=== PATIENT | male | born 1945 | race Two or more races ===

== ENCOUNTER 2024-05-19 10:53 | Inpatient (IN) | payer OTHER ==
[~2024-05-19] VITALS: Ht 160 cm; Wt 52.3 kg
[2024-05-19 11:55] LABS: COVID AG,FIA SOURCE NASAL SWAB
[2024-05-19 12:10] LABS: ANION GAP 7 mmol/L (8-16); CALCIUM, TOTAL 8.2 mg/dL (8.8-10.5); CARBON DIOXIDE 26 mmol/L (22-29); CHLORIDE 105 mmol/L (98-107); CREATININE 0.73 mg/dL (0.60-1.30); GLOMERULAR FILTR. RATE CALC > 60 mL/min (>60); GLUCOSE,RANDOM 90 mg/dL (70-110); POTASSIUM 3.9 mmol/L (3.5-5.1); SODIUM SERUM 138 mmol/L (136-145); UREA NITROGEN, BLOOD 17 mg/dL (7-18)
[2024-05-19] MEDS: ACETAMINOPHEN 325 MG TABLET PO ONE (12:10)
[2024-05-19 12:17] LABS: BASOPHILS % (AUTO) 0.5 % (0.0-2.0); EOSINOPHILS % (AUTO) 5.1 % (1.0-6.0); HEMATOCRIT 37.8 % (41-53); HEMOGLOBIN 12.6 g/dL (13.5-17.5); LYMPHOCYTES # (AUTO) 0.9 K/uL (1.0-4.8); LYMPHOCYTES % (AUTO) 19.8 % (22.0-44.0); MEAN CORPUSCULAR HEMOGLOBIN 31.6 pg (26.0-34.0); MEAN CORPUSCULAR HGB CONC 33.3 G/dL (31.0-37.0); MEAN CORPUSCULAR VOLUME 95 fL (80-100); MONOCYTES # (AUTO) 0.3 K/uL (0.1-1.0); MONOCYTES % (AUTO) 6.7 % (2.0-9.0); NEUTROPHILS % (AUTO) 67.9 % (40.0-70.0); PLATELET COUNT (AUTO) 158 K/uL (150-450); RED BLOOD CELL COUNT(AUTO) 3.98 MIL/uL (4.50-5.90); RED CELL DISTRIBUTION WIDTH 14.3 % (11.5-14.5); WHITE BLOOD COUNT (AUTO) 4.4 K/uL (4.5-11.0)
[2024-05-19 12:24] LABS: ALANINE AMINOTRANSFERASE 23 U/L (12-78); ALBUMIN 3.1 g/dL (3.4-5.0); ALKALINE PHOSPHATASE 72 U/L (46-116); ASPARTATE AMINOTRANSFERASE 32 U/L (15-37); BILIRUBIN,TOTAL 0.4 mg/dL (0.1-1.0); CHOL/HDL RATIO 3.3 (4.2-7.3); CHOLESTEROL 151 mg/dL (131-200); HDL CHOLESTEROL 46 mg/dL (40-60); LDL CHOL (CALC.) 92 mg/dL (0-130); THYROID STIMULATING HORMONE 5.86 uIU/mL (0.36-3.74); TOTAL PROTEIN, SERUM 6.8 g/dL (6.4-8.2); TRIGLYCERIDES 63 mg/dL (15-150)
[2024-05-19 13:11] LABS: INFLUENZA TYPE A NEGATIVE FOR TYPE A (NEGATIVE); INFLUENZA TYPE B POSITIVE FOR TYPE B (NEGATIVE)
[2024-05-19] MEDS: AZITHROMYCIN 500 MG/NS 250 ML IV ONE (13:12)
[2024-05-19] MEDS: CefTRIAXone 1 GM/DEXTROSE 50 ML IV ONE (13:12)
[2024-05-19 13:14] LABS: SARS-COV2 (COVID) ANTIGEN,FIA Negative (Negative)
[2024-05-19] MEDS ORDERED: ACETAMINOPHEN 325 MG TABLET PO PRN (15:00)
[2024-05-19] MEDS ORDERED: ONDANSETRON HCL 4 MG/2 ML VIAL IVP PRN (15:00)
[2024-05-19 15:47] LABS: MTB PCR w/Rif. Resistance-SPUT NOT DETECTED (Not Detectd)
[2024-05-19] MEDS: OSELTAMIVIR PHOSPHATE 75 MG CAPSULE PO SCH (17:04)
[2024-05-19] MEDS: HEPARIN SODIUM,PORCINE 5,000 UNITS/ML VIAL SQ SCH (17:04)
[2024-05-19 17:51] VITALS: BP 112/69; PULSE 54; RESP 18; TEMP 98.2; O2SAT 98
[2024-05-19] MEDS ORDERED: PNEUMOCOCCAL VACCINE POLYVALENT 0.5 ML SYRINGE [PPSV23] IM. ONE (18:15)
[2024-05-19 20:00] VITALS: BP 98/61; PULSE 61; RESP 16; TEMP 98; O2SAT 97
[2024-05-19] MEDS ORDERED: SODIUM CHLORIDE 3% 15 ML NEB SOLUTION NEB ONE (20:36)
[2024-05-19] MEDS: DOCUSATE SODIUM 100 MG CAPSULE PO SCH (21:27)
[2024-05-19 22:49] VITALS: BP 96/57; PULSE 57; RESP 18; TEMP 98; O2SAT 95
[2024-05-20] VITALS (9 sets, daily range): BP systolic 101–137; BP diastolic 61–91; PULSE 56–77; RESP 16–19; TEMP 97.7–98.2; O2SAT 95–99
[2024-05-20 01:07] LABS: HEPATITIS A ANTIBODY IGM Negative (Negative); HEPATITIS B CORE IGM Negative (Negative); HEPATITIS C AB (EIA) Non Reactive (Non Reactive); HIV 1-2 SCREEN 4TH GEN W/RFLX Non Reactive (Non Reactive)
[2024-05-20 07:24] LABS: BASOPHILS % (AUTO) 0.8 % (0.0-2.0); EOSINOPHILS % (AUTO) 6.5 % (1.0-6.0); HEMOGLOBIN 12.3 g/dL (13.5-17.5); LYMPHOCYTES # (AUTO) 1.1 K/uL (1.0-4.8); LYMPHOCYTES % (AUTO) 23.4 % (22.0-44.0); MEAN CORPUSCULAR HEMOGLOBIN 32.3 pg (26.0-34.0); MEAN CORPUSCULAR HGB CONC 34.3 G/dL (31.0-37.0); MEAN CORPUSCULAR VOLUME 94 fL (80-100); MONOCYTES # (AUTO) 0.4 K/uL (0.1-1.0); MONOCYTES % (AUTO) 7.5 % (2.0-9.0); NEUTROPHILS % (AUTO) 61.8 % (40.0-70.0); PLATELET COUNT (AUTO) 165 K/uL (150-450); RED BLOOD CELL COUNT(AUTO) 3.83 MIL/uL (4.50-5.90); RED CELL DISTRIBUTION WIDTH 14.1 % (11.5-14.5); WHITE BLOOD COUNT (AUTO) 4.9 K/uL (4.5-11.0)
[2024-05-20 07:46] LABS: ANION GAP 11 mmol/L (8-16); CALCIUM, TOTAL 8.3 mg/dL (8.8-10.5); CARBON DIOXIDE 24 mmol/L (22-29); CHLORIDE 103 mmol/L (98-107); CREATININE 0.68 mg/dL (0.60-1.30); GLOMERULAR FILTR. RATE CALC > 60 mL/min (>60); GLUCOSE,RANDOM 86 mg/dL (70-110); POTASSIUM 4.2 mmol/L (3.5-5.1); SODIUM SERUM 138 mmol/L (136-145); UREA NITROGEN, BLOOD 17 mg/dL (7-18)
[2024-05-20] MEDS ORDERED: SODIUM CHLORIDE 3% 15 ML NEB SOLUTION NEB ONE (19:42)
[2024-05-21] VITALS: BP 116/71; PULSE 62; RESP 19; TEMP 98; O2SAT 97
[2024-05-21 04:00] VITALS: BP 100/59; PULSE 57; RESP 17; TEMP 98.1; O2SAT 96
[2024-05-21 06:06] LABS: QUANTIFERON+, Nil Value 0.07 IU/mL; QUANTIFERON+,Mitogen Value >10.00 IU/mL; QUANTIFERON+,TB2 Antigen Value 0.56 IU/mL; QUANTIFERON, TB GOLD PLUS Positive (Negative)
[2024-05-21 08:00] VITALS: BP 115/68; PULSE 71; RESP 16; TEMP 97.6; O2SAT 97
[2024-05-21 12:00] VITALS: BP 98/65; PULSE 65; RESP 16; TEMP 98; O2SAT 96
[2024-05-21 16:00] VITALS: BP 110/68; PULSE 73; RESP 16; O2SAT 96
[2024-05-21 20:00] VITALS: BP 94/55; PULSE 64; RESP 17; TEMP 98.3; O2SAT 97
[2024-05-22] VITALS: BP 92/59; PULSE 59; RESP 19; TEMP 98; O2SAT 97
[2024-05-22 05:41] VITALS: BP 94/52; PULSE 56; RESP 16; TEMP 97.8; O2SAT 97
[2024-05-22] MEDS: RINGERS SOLUTION,LACTATED 500 ML IV ONE (18:39)
[2024-05-22 20:36] VITALS: BP 95/51; PULSE 62; RESP 18; TEMP 97.9; O2SAT 97
[2024-05-22 23:59] VITALS: BP 100/61; PULSE 61; RESP 18; TEMP 98.1; O2SAT 97
[2024-05-23 05:07] VITALS: BP 97/65; PULSE 56; RESP 18; TEMP 97.6; O2SAT 96
[2024-05-23 10:54] VITALS: BP 94/60; PULSE 65; RESP 19; TEMP 98; O2SAT 97
[2024-05-23 19:36] VITALS: BP 113/66; PULSE 60; RESP 18; TEMP 98; O2SAT 97
[2024-05-24 04:05] VITALS: BP 93/60; PULSE 74; RESP 18; TEMP 97.7; O2SAT 100
[2024-05-24 09:42] LABS: MTB PCR w/Rif. Resistance-SPUT NOT DETECTED (Not Detectd)
[2024-05-24 09:56] VITALS: BP 88/54; PULSE 61; RESP 18; TEMP 97.7; O2SAT 94
[2024-05-24 16:30] VITALS: BP 101/63; PULSE 62; RESP 18; TEMP 98; O2SAT 97
[2024-05-24] MEDS: RINGERS SOLUTION,LACTATED 1,000 ML IV ONE (17:28)
[2024-05-24 17:56] LABS: EOSINOPHILS % (AUTO) 7.9 % (1.0-6.0); HEMOGLOBIN 13.6 g/dL (13.5-17.5); LYMPHOCYTES # (AUTO) 1.3 K/uL (1.0-4.8); MEAN CORPUSCULAR HEMOGLOBIN 31.3 pg (26.0-34.0); MEAN CORPUSCULAR HGB CONC 33.1 G/dL (31.0-37.0); MEAN CORPUSCULAR VOLUME 95 fL (80-100); MONOCYTES # (AUTO) 0.3 K/uL (0.1-1.0); MONOCYTES % (AUTO) 7.3 % (2.0-9.0); NEUTROPHILS # (AUTO) 2.5 K/uL (1.8-7.7); NEUTROPHILS % (AUTO) 54.8 % (40.0-70.0); PLATELET COUNT (AUTO) 197 K/uL (150-450); RED BLOOD CELL COUNT(AUTO) 4.33 MIL/uL (4.50-5.90); RED CELL DISTRIBUTION WIDTH 13.7 % (11.5-14.5); WHITE BLOOD COUNT (AUTO) 4.6 K/uL (4.5-11.0)
[2024-05-24 18:05] LABS: ANION GAP 9 mmol/L (8-16); CALCIUM, TOTAL 8.5 mg/dL (8.8-10.5); CARBON DIOXIDE 26 mmol/L (22-29); CHLORIDE 102 mmol/L (98-107); GLOMERULAR FILTR. RATE CALC > 60 mL/min (>60); GLUCOSE,RANDOM 88 mg/dL (70-110); SODIUM SERUM 137 mmol/L (136-145); UREA NITROGEN, BLOOD 23 mg/dL (7-18)
[2024-05-24 18:13] LABS: ALANINE AMINOTRANSFERASE 28 U/L (12-78); ALKALINE PHOSPHATASE 88 U/L (46-116); ASPARTATE AMINOTRANSFERASE 26 U/L (15-37); BILIRUBIN,TOTAL 0.3 mg/dL (0.1-1.0)
[2024-05-24 19:20] VITALS: BP 110/74; PULSE 69; RESP 19; TEMP 98.4; O2SAT 98
[2024-05-24] MEDS: MIDODRINE HCL 2.5 MG TABLET PO SCH (20:00)
[2024-05-25 06:00] VITALS: BP 96/57; PULSE 61; RESP 18; TEMP 98.3; O2SAT 98
[2024-05-25 08:29] VITALS: BP 85/55; PULSE 57; RESP 18; TEMP 98; O2SAT 100
[2024-05-25 15:24] LABS: BASOPHILS % (AUTO) 0.5 % (0.0-2.0); EOSINOPHILS % (AUTO) 9.8 % (1.0-6.0); LYMPHOCYTES # (AUTO) 1.2 K/uL (1.0-4.8); MEAN CORPUSCULAR HEMOGLOBIN 31.5 pg (26.0-34.0); MEAN CORPUSCULAR HGB CONC 33.3 G/dL (31.0-37.0); MEAN CORPUSCULAR VOLUME 95 fL (80-100); MONOCYTES # (AUTO) 0.3 K/uL (0.1-1.0); MONOCYTES % (AUTO) 7.3 % (2.0-9.0); NEUTROPHILS # (AUTO) 2.3 K/uL (1.8-7.7); NEUTROPHILS % (AUTO) 53.4 % (40.0-70.0); PLATELET COUNT (AUTO) 226 K/uL (150-450); RED BLOOD CELL COUNT(AUTO) 4.12 MIL/uL (4.50-5.90); RED CELL DISTRIBUTION WIDTH 13.7 % (11.5-14.5); WHITE BLOOD COUNT (AUTO) 4.3 K/uL (4.5-11.0)
[2024-05-25 19:18] VITALS: BP 98/56; PULSE 61; RESP 18; TEMP 98.2; O2SAT 100
[2024-05-25 20:36] VITALS: BP 103/69; PULSE 62; RESP 17; TEMP 98.3; O2SAT 97
[2024-05-26 08:25] VITALS: BP 98/52; PULSE 52; RESP 18; TEMP 98.7; O2SAT 100
[2024-05-26] MEDS: ETHAMBUTOL HCL 400 MG TABLET PO SCH (13:40)
[2024-05-26] MEDS: PYRIDOXINE HCL 50 MG TABLET PO SCH (13:40)
[2024-05-26] MEDS: RIFAMPIN 300 MG CAPSULE PO SCH (13:40)
[2024-05-26] MEDS: ISONIAZID 300 MG TABLET PO SCH (13:40)
[2024-05-26 14:42] LABS: ALANINE AMINOTRANSFERASE 23 U/L (12-78); ALKALINE PHOSPHATASE 107 U/L (46-116); ANION GAP 7 mmol/L (8-16); ASPARTATE AMINOTRANSFERASE 24 U/L (15-37); BILIRUBIN,TOTAL 0.3 mg/dL (0.1-1.0); CALCIUM, TOTAL 8.3 mg/dL (8.8-10.5); CARBON DIOXIDE 25 mmol/L (22-29); CHLORIDE 103 mmol/L (98-107); CREATININE 0.86 mg/dL (0.60-1.30); GLOMERULAR FILTR. RATE CALC > 60 mL/min (>60); GLUCOSE,RANDOM 111 mg/dL (70-110); POTASSIUM 4.2 mmol/L (3.5-5.1); SODIUM SERUM 135 mmol/L (136-145); TOTAL PROTEIN, SERUM 6.9 g/dL (6.4-8.2); UREA NITROGEN, BLOOD 23 mg/dL (7-18)
[2024-05-26 19:40] VITALS: BP 93/60; PULSE 60; RESP 16; TEMP 98.6; O2SAT 99
[2024-05-27 04:15] VITALS: BP 97/60; PULSE 57; RESP 16; TEMP 97.5; O2SAT 97
[2024-05-27 08:00] VITALS: BP 96/58; PULSE 62; RESP 16; TEMP 98.2; O2SAT 97
[2024-05-27 08:10] LABS: ALANINE AMINOTRANSFERASE 24 U/L (12-78); ALBUMIN 2.9 g/dL (3.4-5.0); ALKALINE PHOSPHATASE 113 U/L (46-116); ANION GAP 10 mmol/L (8-16); ASPARTATE AMINOTRANSFERASE 27 U/L (15-37); BILIRUBIN,TOTAL 0.6 mg/dL (0.1-1.0); CALCIUM, TOTAL 8.4 mg/dL (8.8-10.5); CARBON DIOXIDE 24 mmol/L (22-29); CHLORIDE 103 mmol/L (98-107); CREATININE 0.71 mg/dL (0.60-1.30); GLOMERULAR FILTR. RATE CALC > 60 mL/min (>60); GLUCOSE,RANDOM 81 mg/dL (70-110); POTASSIUM 4.1 mmol/L (3.5-5.1); SODIUM SERUM 137 mmol/L (136-145); TOTAL PROTEIN, SERUM 6.8 g/dL (6.4-8.2); UREA NITROGEN, BLOOD 20 mg/dL (7-18)
[2024-05-27 19:56] VITALS: BP 107/65; PULSE 63; RESP 16; TEMP 98.2; O2SAT 96
[2024-05-28 07:39] LABS: ALANINE AMINOTRANSFERASE 26 U/L (12-78); ALBUMIN 3.1 g/dL (3.4-5.0); ALKALINE PHOSPHATASE 113 U/L (46-116); ANION GAP 7 mmol/L (8-16); ASPARTATE AMINOTRANSFERASE 26 U/L (15-37); BILIRUBIN,TOTAL 0.6 mg/dL (0.1-1.0); CALCIUM, TOTAL 8.6 mg/dL (8.8-10.5); CARBON DIOXIDE 27 mmol/L (22-29); CHLORIDE 101 mmol/L (98-107); CREATININE 0.65 mg/dL (0.60-1.30); GLOMERULAR FILTR. RATE CALC > 60 mL/min (>60); GLUCOSE,RANDOM 85 mg/dL (70-110); POTASSIUM 4.1 mmol/L (3.5-5.1); SODIUM SERUM 135 mmol/L (136-145); TOTAL PROTEIN, SERUM 7.2 g/dL (6.4-8.2); UREA NITROGEN, BLOOD 18 mg/dL (7-18)
[2024-05-28 07:57] VITALS: BP 102/66; PULSE 53; RESP 18; TEMP 97.7; O2SAT 96
[2024-05-28 16:00] VITALS: BP 106/62; PULSE 56; RESP 18; TEMP 98.2; O2SAT 97
[2024-05-28 19:22] VITALS: BP 105/62; PULSE 61; RESP 18; TEMP 98.5; O2SAT 97
[2024-05-29 05:52] VITALS: BP 109/61; PULSE 56; RESP 18; TEMP 98; O2SAT 97
[2024-05-29 08:51] VITALS: BP 106/64; PULSE 58; RESP 18; TEMP 98.2; O2SAT 98
[2024-05-29 13:07] LABS: ALANINE AMINOTRANSFERASE 28 U/L (12-78); ALKALINE PHOSPHATASE 131 U/L (46-116); ANION GAP 7 mmol/L (8-16); ASPARTATE AMINOTRANSFERASE 29 U/L (15-37); BILIRUBIN,TOTAL 0.7 mg/dL (0.1-1.0); CALCIUM, TOTAL 8.6 mg/dL (8.8-10.5); CARBON DIOXIDE 27 mmol/L (22-29); CHLORIDE 101 mmol/L (98-107); CREATININE 0.76 mg/dL (0.60-1.30); GLOMERULAR FILTR. RATE CALC > 60 mL/min (>60); GLUCOSE,RANDOM 119 mg/dL (70-110); POTASSIUM 4.2 mmol/L (3.5-5.1); SODIUM SERUM 135 mmol/L (136-145); TOTAL PROTEIN, SERUM 7.1 g/dL (6.4-8.2); UREA NITROGEN, BLOOD 20 mg/dL (7-18)
[2024-05-29 16:46] VITALS: BP 100/59; PULSE 61; RESP 17; TEMP 98.5; O2SAT 97
[2024-05-29 20:26] VITALS: BP 101/60; PULSE 61; RESP 18; TEMP 97.8; O2SAT 95
[2024-05-30 04:45] VITALS: BP 100/60; PULSE 60; RESP 18; TEMP 98.2; O2SAT 96
[2024-05-30 07:20] LABS: ALANINE AMINOTRANSFERASE 30 U/L (12-78); ALBUMIN 3.2 g/dL (3.4-5.0); ALKALINE PHOSPHATASE 128 U/L (46-116); ANION GAP 10 mmol/L (8-16); ASPARTATE AMINOTRANSFERASE 36 U/L (15-37); BILIRUBIN,TOTAL 0.4 mg/dL (0.1-1.0); CALCIUM, TOTAL 8.8 mg/dL (8.8-10.5); CARBON DIOXIDE 25 mmol/L (22-29); CHLORIDE 100 mmol/L (98-107); CREATININE 0.72 mg/dL (0.60-1.30); GLOMERULAR FILTR. RATE CALC > 60 mL/min (>60); GLUCOSE,RANDOM 86 mg/dL (70-110); POTASSIUM 4.1 mmol/L (3.5-5.1); SODIUM SERUM 135 mmol/L (136-145); TOTAL PROTEIN, SERUM 7.3 g/dL (6.4-8.2); UREA NITROGEN, BLOOD 22 mg/dL (7-18)
[2024-05-30 08:00] VITALS: BP 100/61; PULSE 57; RESP 20; TEMP 98.1; O2SAT 97
[2024-05-30] MEDS ORDERED: ETHAMBUTOL HCL 400 MG TABLET PO ONE (10:15)
[2024-05-30] MEDS ORDERED: RIFAMPIN 300 MG CAPSULE PO SCH (10:15)
[2024-05-30] MEDS ORDERED: ISONIAZID 300 MG TABLET PO SCH (10:35)
[2024-05-30] MEDS ORDERED: PYRIDOXINE HCL 50 MG TABLET PO SCH (10:35)
[2024-05-30 11:20] LABS: BASOPHILS % (AUTO) 0.2 % (0.0-2.0); EOSINOPHILS % (AUTO) 9.4 % (1.0-6.0); HEMATOCRIT 40.6 % (41-53); HEMOGLOBIN 13.8 g/dL (13.5-17.5); LYMPHOCYTES # (AUTO) 1.4 K/uL (1.0-4.8); LYMPHOCYTES % (AUTO) 25.5 % (22.0-44.0); MEAN CORPUSCULAR HEMOGLOBIN 31.9 pg (26.0-34.0); MEAN CORPUSCULAR HGB CONC 33.9 G/dL (31.0-37.0); MEAN CORPUSCULAR VOLUME 94 fL (80-100); MONOCYTES # (AUTO) 0.4 K/uL (0.1-1.0); MONOCYTES % (AUTO) 8.2 % (2.0-9.0); NEUTROPHILS % (AUTO) 56.7 % (40.0-70.0); PLATELET COUNT (AUTO) 230 K/uL (150-450); RED BLOOD CELL COUNT(AUTO) 4.31 MIL/uL (4.50-5.90); RED CELL DISTRIBUTION WIDTH 14.1 % (11.5-14.5); WHITE BLOOD COUNT (AUTO) 5.3 K/uL (4.5-11.0)
[2024-05-30 12:46] LABS: BASOPHILS % (AUTO) 0.9 % (0.0-2.0); EOSINOPHILS % (AUTO) 9.1 % (1.0-6.0); HEMATOCRIT 41.3 % (41-53); HEMOGLOBIN 13.9 g/dL (13.5-17.5); LYMPHOCYTES # (AUTO) 1.1 K/uL (1.0-4.8); LYMPHOCYTES % (AUTO) 23.8 % (22.0-44.0); MEAN CORPUSCULAR HEMOGLOBIN 31.5 pg (26.0-34.0); MEAN CORPUSCULAR HGB CONC 33.5 G/dL (31.0-37.0); MEAN CORPUSCULAR VOLUME 94 fL (80-100); MONOCYTES # (AUTO) 0.3 K/uL (0.1-1.0); MONOCYTES % (AUTO) 7.5 % (2.0-9.0); NEUTROPHILS # (AUTO) 2.6 K/uL (1.8-7.7); NEUTROPHILS % (AUTO) 58.7 % (40.0-70.0); PLATELET COUNT (AUTO) 229 K/uL (150-450); RED CELL DISTRIBUTION WIDTH 14.3 % (11.5-14.5); WHITE BLOOD COUNT (AUTO) 4.5 K/uL (4.5-11.0)
[2024-05-30 13:02] LABS: ALANINE AMINOTRANSFERASE 33 U/L (12-78); ALBUMIN 3.3 g/dL (3.4-5.0); ALKALINE PHOSPHATASE 131 U/L (46-116); ANION GAP 5 mmol/L (8-16); ASPARTATE AMINOTRANSFERASE 39 U/L (15-37); BILIRUBIN,TOTAL 0.7 mg/dL (0.1-1.0); CALCIUM, TOTAL 8.6 mg/dL (8.8-10.5); CARBON DIOXIDE 28 mmol/L (22-29); CHLORIDE 101 mmol/L (98-107); CREATININE 0.72 mg/dL (0.60-1.30); GLOMERULAR FILTR. RATE CALC > 60 mL/min (>60); GLUCOSE,RANDOM 98 mg/dL (70-110); POTASSIUM 3.9 mmol/L (3.5-5.1); SODIUM SERUM 134 mmol/L (136-145); TOTAL PROTEIN, SERUM 7.6 g/dL (6.4-8.2); UREA NITROGEN, BLOOD 23 mg/dL (7-18)
[2024-05-30] MEDS ORDERED: MIDO2.5T19 PO (13:22)
[2024-05-30] MEDS ORDERED: PYRI-9 PO (13:22)
[2024-05-30] MEDS ORDERED: RIFA300C63 PO (13:22)
[2024-05-30] MEDS ORDERED: ISON300T18 PO (13:22)
[2024-05-30] MEDS ORDERED: ETHA400T25 PO (13:22)
[2024-05-31] MEDS ORDERED: RIFAMPIN 300 MG CAPSULE PO SCH (09:00)
[2024-05-31] MEDS ORDERED: ETHAMBUTOL HCL 400 MG TABLET PO SCH (09:00)
[2024-05-31] MEDS ORDERED: PYRIDOXINE HCL 50 MG TABLET PO SCH (09:00)
[2024-05-31] MEDS ORDERED: ISONIAZID 300 MG TABLET PO SCH (09:00)
== END 2024-05-30 20:00 | DRG 177 ==
LOC: EMS 10:53 → EDH 15:04 → 6S 17:10 → 5N 22:29 → 6N 05-23 10:20
PROVIDERS: ADMIT Internal Medicine; ATTEND Internal Medicine
DX: A15.0 Tuberculosis of lung (principal); E43 Unspecified severe protein-calorie malnutrition; D64.9 Anemia, unspecified; R94.6 Abnormal results of thyroid function studies; I95.9 Hypotension, unspecified; J18.9 Pneumonia, unspecified organism; J10.00 Influenza due to other identified influenza virus with unspecified type of pneumonia; Z22.7 Latent tuberculosis; Z78.9 Other specified health status; Z79.899 Other long term (current) drug therapy; Z68.20 Body mass index [BMI] 20.0-20.9, adult
CPT/HCPCS: 71045; 80048; 80053; 80061; 80074; 83735; 84153; 84439; 84443; 85025; 86480; 86592; 87015; 87206; 87389; 87556; 87804; 94640; J0456; J0696; J1644; J7120; 36415-L1; 36415-TC

== ENCOUNTER 2024-05-31 15:27 | Inpatient (IN) | payer OTHER ==
[~2024-05-31] VITALS: Ht 170.2 cm; Wt 53.0 kg
[~2024-05-31 15:27] MED LIST: ETHA400T25 PO; ISON300T18 PO; MIDO2.5T19 PO; PYRI-9 PO; RIFA300C63 PO
[2024-05-31] MEDS: SODIUM CHLORIDE 0.9% 1,000 ML IV ONE ×2 (16:50→19:31)
[2024-05-31 17:22] LABS: BASOPHILS % (AUTO) 0.5 % (0.0-2.0); EOSINOPHILS % (AUTO) 6.8 % (1.0-6.0); HEMATOCRIT 39.6 % (41-53); HEMOGLOBIN 13.4 g/dL (13.5-17.5); LYMPHOCYTES # (AUTO) 1.2 K/uL (1.0-4.8); LYMPHOCYTES % (AUTO) 23.7 % (22.0-44.0); MEAN CORPUSCULAR HEMOGLOBIN 31.7 pg (26.0-34.0); MEAN CORPUSCULAR HGB CONC 33.8 G/dL (31.0-37.0); MEAN CORPUSCULAR VOLUME 94 fL (80-100); MONOCYTES # (AUTO) 0.4 K/uL (0.1-1.0); MONOCYTES % (AUTO) 8.5 % (2.0-9.0); NEUTROPHILS # (AUTO) 3.1 K/uL (1.8-7.7); NEUTROPHILS % (AUTO) 60.5 % (40.0-70.0); PLATELET COUNT (AUTO) 225 K/uL (150-450); RED BLOOD CELL COUNT(AUTO) 4.21 MIL/uL (4.50-5.90); RED CELL DISTRIBUTION WIDTH 13.9 % (11.5-14.5); WHITE BLOOD COUNT (AUTO) 5.2 K/uL (4.5-11.0)
[2024-05-31 17:31] LABS: ANION GAP 7 mmol/L (8-16); CALCIUM, TOTAL 8.5 mg/dL (8.8-10.5); CARBON DIOXIDE 29 mmol/L (22-29); CHLORIDE 103 mmol/L (98-107); CREATININE 0.77 mg/dL (0.60-1.30); GLOMERULAR FILTR. RATE CALC > 60 mL/min (>60); GLUCOSE,RANDOM 87 mg/dL (70-110); POTASSIUM 4.2 mmol/L (3.5-5.1); SODIUM SERUM 139 mmol/L (136-145); UREA NITROGEN, BLOOD 24 mg/dL (7-18)
[2024-05-31 17:36] LABS: B-TYPE NATRIURETIC PEPTIDE 60 pg/mL (0-100)
[2024-05-31 17:37] LABS: ALANINE AMINOTRANSFERASE 32 U/L (12-78); ALBUMIN 3.1 g/dL (3.4-5.0); ALKALINE PHOSPHATASE 133 U/L (46-116); ASPARTATE AMINOTRANSFERASE 33 U/L (15-37); BILIRUBIN,TOTAL 0.2 mg/dL (0.1-1.0); CREATINE KINASE, TOTAL ONLY 50 U/L (39-308); TOTAL PROTEIN, SERUM 7.2 g/dL (6.4-8.2)
[2024-05-31 17:38] LABS: TROPONIN I-HIGH SENSITIVITY 8 ng/L (<76)
[2024-05-31 18:20] LABS: GLUCOMETER DEV NAME(LOC) ERT.6; GLUCOSE,POINT OF CARE 98 MG/DL (70-110)
[2024-05-31] MEDS ORDERED: ONDANSETRON HCL 4 MG/2 ML VIAL IVP PRN (19:00)
[2024-05-31] MEDS ORDERED: MAGNESIUM HYDROXIDE SUSPENSION 30 ML UDCUP PO PRN (19:00)
[2024-05-31] MEDS ORDERED: ACETAMINOPHEN 325 MG TABLET PO PRN (19:00)
[2024-05-31] MEDS ORDERED: SODIUM CHLORIDE 0.9% 100 ML ONE (19:38)
[2024-05-31] MEDS ORDERED: 0.9% SODIUM CHLORIDE 10 ML SYRINGE IVP ONE (19:38)
[2024-05-31] MEDS ORDERED: IOHEXOL 350 MG/ML 100 ML VIAL ONE (19:38)
[2024-05-31 19:55] LABS: APPEARANCE,URINE CLEAR (CLEAR); BILIRUBIN,URINE NEGATIVE (NEGATIVE); COLOR,URINE YELLOW (YELLOW); GLUCOSE, URINE (UA) NEGATIVE (NEGATIVE); KETONES,URINE NEGATIVE (NEGATIVE); LEUKOCYTE ESTERASE ,URINE NEGATIVE (NEGATIVE); NITRATE,URINE NEGATIVE (NEGATIVE); OCCULT BLOOD,URINE NEGATIVE (NEGATIVE); PH,URINE 6.5 (5.0-8.0); PROTEIN,URINE TRACE mg/dL (NEGATIVE); SPECIFIC GRAVITIY, URINE 1.027 (1.003-1.030); UROBILINOGEN,URINE <=1.0 mg/dL (<=1.0)
[2024-05-31] MEDS: DOCUSATE SODIUM 100 MG CAPSULE PO SCH (22:48)
[2024-05-31] MEDS: HEPARIN SODIUM,PORCINE 5,000 UNITS/ML VIAL SQ SCH (22:48)
[2024-06-01 00:02] VITALS: BP 121/66; PULSE 56; RESP 18; TEMP 97.7; O2SAT 96
[2024-06-01 04:31] VITALS: BP 109/62; PULSE 54; RESP 18; TEMP 98.4; O2SAT 97
[2024-06-01] MEDS: FAMOTIDINE 20 MG TABLET PO SCH (09:00)
[2024-06-01] MEDS: MULTIVITAMINS WITH MINERALS, THERAPEUTIC TABLET PO SCH (09:00)
[2024-06-01] MEDS: ISONIAZID 300 MG TABLET PO SCH (15:54)
[2024-06-01] MEDS: RIFAMPIN 300 MG CAPSULE PO SCH (15:54)
[2024-06-01] MEDS: MIDODRINE HCL 2.5 MG TABLET PO SCH (15:54)
[2024-06-01] MEDS: ETHAMBUTOL HCL 400 MG TABLET PO SCH (15:54)
[2024-06-01] MEDS: PYRIDOXINE HCL 50 MG TABLET PO SCH (15:55)
[2024-06-01 20:00] VITALS: BP 102/59; PULSE 57; RESP 18; TEMP 98.3; O2SAT 97
[2024-06-02 05:18] VITALS: BP 95/55; PULSE 54; RESP 19; TEMP 98.6; O2SAT 98
[2024-06-02 08:04] VITALS: BP 109/55; PULSE 59; RESP 18; TEMP 98.1; O2SAT 98
[2024-06-02 20:00] VITALS: BP 103/65; PULSE 61; RESP 32; TEMP 98.3; O2SAT 96
[2024-06-02 22:00] VITALS: BP 110/61; PULSE 58; RESP 28; TEMP 98.1; O2SAT 97
[2024-06-03 05:30] VITALS: BP 97/58; PULSE 57; RESP 21; TEMP 97.9; O2SAT 96
[2024-06-03 07:43] VITALS: BP 110/66; PULSE 51; RESP 18; TEMP 98; O2SAT 97
[2024-06-03 19:52] VITALS: BP 108/68; PULSE 60; RESP 18; TEMP 98.5; O2SAT 100
[2024-06-04 04:35] VITALS: BP 99/65; PULSE 53; RESP 18; TEMP 98; O2SAT 97
[2024-06-04 08:22] VITALS: BP 105/68; PULSE 58; RESP 19; TEMP 97.8; O2SAT 97
[2024-06-04] MEDS ORDERED: DOCU-385 PO (12:56)
[2024-06-04] MEDS ORDERED: MAGN-169 PO (12:57)
[2024-06-04 16:48] VITALS: BP 110/65; PULSE 56; RESP 18; TEMP 98.4; O2SAT 97
[2024-06-04 19:55] VITALS: BP 102/55; PULSE 67; RESP 18; TEMP 98.6; O2SAT 98
[2024-06-05 04:30] VITALS: BP 114/71; PULSE 62; RESP 18; TEMP 98.2; O2SAT 98
[2024-06-05 19:20] VITALS: BP 115/66; PULSE 68; RESP 18; TEMP 98.1; O2SAT 97
== END 2024-06-05 20:40 | DRG 640 ==
LOC: EMS 15:27 → EDH 18:53 → 6S 20:32 → 6N 23:31
PROVIDERS: ADMIT Internal Medicine; ATTEND Internal Medicine
DX: R62.7 Adult failure to thrive (principal); E43 Unspecified severe protein-calorie malnutrition; Z68.1 Body mass index [BMI] 19.9 or less, adult; E86.0 Dehydration; F32.9 Major depressive disorder, single episode, unspecified; F43.20 Adjustment disorder, unspecified; Z22.7 Latent tuberculosis; Z86.11 Personal history of tuberculosis; Z86.15 Personal history of latent tuberculosis infection
CPT/HCPCS: 71045; 71260; 72193; 74160; 80053; 81003; 82550; 82962; 83880; 84484; 85025; 93005; 97162; 97164; 97166; 97530; 97535; 99285; J1644; J7030; J7050; 36415-L1; 36415-TC